=== PATIENT | female | born 2000 | race Caucasian/White ===

== ENCOUNTER 2020-08-10 00:02 | Emergency (ER) | payer OTHER, SELFPAY ==
--- NOTE | ~2020-08-10 | CT_ITS ---
EXAMINATION: CT brain wo con INDICATION: Headache COMPARISON: None TECHNIQUE: Standard unenhanced head CT. The dose-length product (DLP) was 605.33 mGy-cm. The mA was a djusted according to patient size. Iterative reconstruction technique was employed. FINDINGS: There is no intracranial hemorrhage, acute infarction, or abnormal mass lesion. The ventric les are normal. There is no abnormal mass effect or midline shift. The scott-white matter differentiat ion is normal. The basal cisterns are patent. The orbits are normal. The paranasal sinuses, mastoids and calvarium are normal. IMPRESSION: 1. No acute intracranial abnormality. Reviewed, dictated and finalized at location A. 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
[2020-08-10 00:04] VITALS: BP 124/79; PULSE 79; RESP 15; TEMP 36.6; O2SAT 100
--- NOTE | 2020-08-10 00:15 | PC.NURSE ---
To room with steady brisk gait, normal gait, normal posture, changing positions without difficulty.
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
[2020-08-10] MEDS: METOCLOPRAMIDE HCL INJ 10 MG/2 ML VIAL IV PUSH (01:22)
[2020-08-10] MEDS: SODIUM CHLORIDE 0.9% IV 1,000 ML 999 ML IV CONT (01:22)
[2020-08-10] MEDS: diphenhydrAMINE HCl INJ 50 MG/ML VIAL 25 MG IV PUSH (01:22)
[2020-08-10] MEDS: MAGNESIUM SULF 2 GM/WATER 50ML 2 GM/50 ML BAG IVPB (01:35)
[2020-08-10 02:01] LABS: Basophils Absolute Auto 0.1 K/mm3 (0.0-0.1); Eosinophils Absolute Auto 0.1 K/mm3 (0-0.3); Eosinophils Percent Auto 1.4 % (0-4.4); Hematocrit 37.2 % (37.0-47.0); Hemoglobin 12.5 g/dL (12.0-15.0); Immature Granulocyte Absolute 0.01 K/mm3 (0.00-0.031); Immature Granulocyte Percent A 0.1 % (0-0.5); Lymphocytes Absolute Auto 3.12 K/mm3 (0.9-3.2); Lymphocytes Percent Auto 42.4 % (18.3-44.2); Mean Corpuscular HGB Conc 33.6 g/dl (32-36); Mean Corpuscular Hemoglobin 28.9 pg (26-34); Mean Corpuscular Volume 86.1 fl (80-100); Mean Platelet Volume 10.4 fl (7.4-10.4); Monocytes Absolute Auto 0.8 K/mm3 (0.1-0.6); Monocytes Percent Auto 10.2 % (2.6-8.5); Neutrophils Absolute Auto 3.3 K/mm3 (1.3-6.7); Neutrophils Percent Auto 44.9 % (45.5-73.1); Platelet Count Result 229 k/mm3 (150-375); Red Blood Count 4.32 M/mm3 (4.2-5.4); Red Cell Distribution Width 13.9 % (11.5-14.5); White Blood Count 7.4 K/mm3 (4.5-10.0)
[2020-08-10 02:14] LABS: Anion Gap 8 mmol/L (8-16); Blood Urea Nitrogen 12 mg/dL (7-17); Carbon Dioxide 26 mmol/L (22-30); Chloride 104 mmol/L (98-107); Estimated CRCL calculation 106 ml/min; Estimated Glomerular Filt Rate > 60; Glucose 91 mg/dL (65-105); Potassium 3.3 mmol/L (3.4-5.0); Sodium 138 mmol/L (137-145)
[2020-08-10 02:31] VITALS: BP 96/56; PULSE 82; RESP 16; TEMP 36.6; O2SAT 100
== END 2020-08-10 02:31 | disposition home or self-care (01) ==
PROVIDERS: Emergency Provider Emergency Medicine
DX: R51.9 Headache, unspecified (principal)
CPT/HCPCS: 36415; 70450; 80048; 85025; 96365; 96375; 99284; J0131; J1200; J2765; J3475; J7030

== ENCOUNTER 2021-11-09 17:53 | Emergency (ER) | payer OTHER, SELFPAY ==
[2021-11-09 18:02] VITALS: BP 122/65; PULSE 66; RESP 20; TEMP 37.5; O2SAT 100
--- NOTE | 2021-11-09 18:37 | ED.SKABFB ---
HPI - Skin/Abscess/Foreign Bdy General Chief complaint: Skin/Abscess/Foreign Body Stated complaint: Head Pain Time Seen by Provider: 11/09/21 18:23 Source: patient and RN notes reviewed Mode of arrival: ambulatory Limitations: no limitations History of Present Illness HPI narrative: Patient presents today complaining of a bump behind her right ear that is occasionally itchy and painful. Patient has been bothered by this bump intermittently over the past year and wanted to come in for evaluation. It is most prominent after she has been crying or when she washes her hair. She became alarmed after she Google searched and it said she may have a blood clot on the surface of her scalp. Denies real pain, but states it is uncomfortable. She has not tried any [id number]-[id number] treatment prior to arrival. Related Data Home Medications Medication Instructions Recorded Confirmed No Home Medications 11/09/21 11/09/21 Allergies Allergy/AdvReac Type Severity Reaction Status Date / Time No Known Allergies Allergy Verified 11/09/21 18:06 Review of Systems Review of Systems: CONSTITUTIONAL: Denies body aches, fever, chills, or sweats. EYES: Denies visual changes, redness, or discharge. ENT: Denies rhinorrhea, congestion, sore throat, or otalgia. CARDIOVASCULAR: Denies chest pain, palpitations, or edema. RESPIRATORY: Denies cough or dyspnea. GASTROINTESTINAL: Denies abdominal pain, nausea, vomiting, or diarrhea. GENITOURINARY: Denies dysuria or hematuria. SKIN: Denies rash, itching, or wounds.+ Bump to scalp MUSCULOSKELETAL: Denies back pain, joint pain, or myalgia. NEUROLOGIC: Denies headache, numbness, tingling, or weakness. PSYCH: Denies depression or anxiety. [facility] Past Medical History Medical History No pertinent past medical history Surgical History Surgical History No pertinent past surgical history Social History Social History Smoking status: Current every day smoker Tobacco type: e-cigarettes/vaping Alcohol intake: never Substance use: current Substance use type: marijuana Gender identity (if verbalized by the patient): Female Comments At time of signature, I have reviewed and agree with nursing past medical, surgical, social and family history unless otherwise noted. Please see nursing chart for further information. There is no relevant family history pertinent to the presenting complaint Exam Narrative: GENERAL: Well-appearing, well-nourished, and in no acute distress. HEAD: Normocephalic, atraumatic. EYES: EOMI. No redness or drainage. Conjunctivae normal. ENT: Mucous membranes pink and moist. Right postauricular tenderness over 1 lymph node. No erythema or additional edema noted. NECK: Normal AROM. Supple. No lymphadenopathy. CHEST: No respiratory distress. Clear to auscultation. HEART: Regular rate and rhythm. No murmur appreciated. Normal peripheral pulses. EXTREMITIES: Normal range of motion. No edema. SKIN: Warm, dry, no rash. Capillary refill normal. Normal skin turgor. NEURO: No focal deficits. Alert and oriented x3. Gait steady. PSYCH: Normal affect. No signs of depression or anxiety. Course Course Level of Care: Express Care Visit Vital Signs Vital signs: Vital Signs Temperature 99.5 F 11/09/21 18:02 Pulse Rate 66 11/09/21 18:02 Respiratory Rate 20 11/09/21 18:02 Blood Pressure 122/65 11/09/21 18:02 Pulse Oximetry 100 11/09/21 18:02 Temperature 99.5 F 11/09/21 18:02 Pulse Rate 66 11/09/21 18:02 Respiratory Rate 20 11/09/21 18:02 Blood Pressure 122/65 11/09/21 18:02 Pulse Oximetry 100 11/09/21 18:02 Reviewed. Pt has been instructed to follow up with her PCP regarding her elevated blood pressure today. MDM - Skin/Abscess/Foreign Bdy Differential Diagn
== END 2021-11-09 18:47 | disposition home or self-care (01) ==
PROVIDERS: Emergency Provider Nurse Practitioner
DX: I88.9 Nonspecific lymphadenitis, unspecified (principal); F17.290 Nicotine dependence, other tobacco product, uncomplicated; F12.90 Cannabis use, unspecified, uncomplicated
CPT/HCPCS: 99211; G0463

== ENCOUNTER 2024-10-04 10:32 | Emergency (ER) | payer SELFPAY ==
--- NOTE | 2024-10-04 10:41 | ED.URI ---
HPI - URI/Sore Throat General Chief Complaint: Upper Respiratory Infection Stated Complaint: Cough/Sinus Time Seen by Provider: 10/04/24 10:59 Source: patient and RN notes reviewed Mode of arrival: ambulatory Limitations: no limitations History of Present Illness HPI Narrative: 24-year-old female presents with concern of for cough, sinus congestion, body for several days. Reports she has taken Tylenol without relief. Reports vomiting related to coughing MD elicited complaint: cough and nasal congestion Related Data Allergies Allergy/AdvReac Type Severity Reaction Status Date / Time No Known Allergies Allergy Verified 10/04/24 10:38 Review of Systems Review of Systems: CONSTITUTIONAL: Reports malaise, chills EYES: Denies visual changes, redness, or discharge. ENT: Reports rhinorrhea, congestion, and sore throat. CARDIOVASCULAR: Denies chest pain, palpitations, or edema. RESPIRATORY: Reports cough. Denies dyspnea. GASTROINTESTINAL: Denies abdominal pain, nausea, vomiting, diarrhea SKIN: Denies rash or itching. MUSCULOSKELETAL: Reports myalgia. NEUROLOGIC: Denies headache. All systems reviewed & are unremarkable except as noted in HPI and below PMFSH Past Medical History Medical History No pertinent past medical history Surgical History Surgical History No pertinent past surgical history Social History Social History Smoking status: Current every day smoker Tobacco type: e-cigarettes/vaping Alcohol intake: never Substance use: current Substance use type: marijuana Gender identity (if verbalized by the patient): Female Comments At time of signature, agree with nursing past medical, surgical, social and family history. There is no relevant family history pertinent to the presenting complaint Exam Narrative: GENERAL: Well-appearing, well-nourished, and in no acute distress. HEAD: Normocephalic EYES: PERRLA, conjunctivae clear ENT: Nares clear. Mucous membranes moist. TM pearly scott with dull light reflex bilaterally; no tragal tenderness. Oropharynx not erythematous without lesions. Tonsils not enlarged and without exudate, no drooling, no hoarseness, no trismus, uvula midline. NECK: Supple. No lymphadenopathy CHEST: Clear to auscultation, breath sounds equal. No wheezing, rhonchi, rales, or stridor. No respiratory distress, speaks in full sentences. HEART: Regular rate and rhythm. No murmur heard. SKIN: Warm, dry, no rash. NEURO: Alert and oriented x3. PSYCH: Normal mood and affect Course Course Emergency Course: Patient is aware of diagnosis, understands and agrees to treatment plan. Anticipatory guidance given. Patient agrees to follow-up as directed and is aware of reasons to seek care at the emergency department. Portions of this record may have been created with voice recognition software Level of Care: Express Care Visit Vital Signs Vital signs: Reviewed. MDM - URI/Sore Throat MDM Narrative Medical decision making narrative: Differential diagnosis considered: Perez virus, strep pharyngitis, allergic rhinitis, upper respiratory tract infection, sinusitis, rhinosinusitis, nasopharyngitis. viral pharyngitis, otitis media, otitis externa, pneumonia, bronchitis, viral cough syndrome, viral syndrome, and influenza. Exam findings show no acute concerns or changes; patient is non-toxic appearing and is in no distress. Patient is appropriate for outpatient treatment and follow-up. Lab Data Attestation: I reviewed the patient's lab results. Critical Care Time Critical Care Time Critical Care Time: No Discharge Plan Discharge Clinical Impression: Upper respiratory infection Patient Disposition: Home, Self-Care Condition: Stable Instructions: Upper Respiratory Infection (ED) Additional Instructions: Your rapid COVID and flu tests are negative Your rapid strep swab was negative today at [facility]. A throat culture will be sent to the laboratory for further testing. If the test is positive, you will receive a phone call within 48 hours and an appropriate antibiotic will be initiated at that time. Your symptoms are likely due to a viral illness, which is not treated with antibiotics. Viral symptoms can be present for up to a few weeks. -Alternate Tylenol and Motrin per package directions for fever or pain. -Antihistamine medication such as Benadryl at night and Zyrtec during the day can help improve symptoms. -Eat and drink things that are easy to swallow, like tea or soup, or popsicles to suck on. -Oral rinses such as: Salt water gargles and/or may use topical anesthetic (eg. Chloraseptic spray) or lozenges to relieve dryness or throat pain). -Frequent hand washing or hand hadoop consultant is one of the best ways to prevent spread of infection. -Follow up with primary care provider in 2-3 days if condition is not improving; or seek ER visit if you have trouble breathing, cannot drink enough fluids, have muffled voice, difficulty opening your mouth, or severe swelling. Patient Language: Maori Prescriptions: New promethazine-DM 6.25-15 mg/5 mL syrup 5 ml PO Q4-6H PRN (Reason: cough) Qty: 120 0RF Follow-up/Referrals: PHYSICIAN,FAMILY LITERACY COORDINATOR [Primary Care Provider] - Time of Disposition: 11:06
[2024-10-04 10:49] VITALS: BP 128/85; PULSE 85; RESP 16; TEMP 37.7; O2SAT 99
[2024-10-04 11:04] LABS: EDCOVIDSCREEN Negative (Negative); EDINFLUASCREEN Negative (Negative); EDINFLUBSCREEN Negative (Negative); EDSTREPNEGPOS1 Negative (Negative)
== END 2024-10-04 11:10 | disposition home or self-care (01) ==
PROVIDERS: Emergency Provider Nurse Practitioner
DX: J06.9 Acute upper respiratory infection, unspecified (principal); Z20.822 Contact with and (suspected) exposure to COVID-19; F17.290 Nicotine dependence, other tobacco product, uncomplicated; F12.90 Cannabis use, unspecified, uncomplicated
CPT/HCPCS: 87081; 87426; 87804; 87880; 99213; G0463

== ENCOUNTER 2025-08-05 02:26 | Emergency (ER) | payer SELFPAY ==
--- OUTSIDE RECORDS SUMMARY | 2025-08-05 02:30 | XMS_ITS | Clinical Summary ---
Author Organization 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 [employer],non-owned Affiliates and Associated Physician Practices is amultiple site organization consisting of ambulatory clinics and hospital sitesin [place], [place], [place] and [place]. This disclosure is being madepursuant to the Care Everywhere program and may not contain all information available regarding this patient. Last updated 18.[facility] [employer] Allergies No known active allergies Medications * Be aware that medications may not be up to date on this document. Alwaysverify current medications with the patient. 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 Gender Identity Not on file Sexual Orientation Not on file Last Filed Vital Signs Vital Sign Reading Time Taken Comments Blood Pressure 140/76 03/22/2017 4:03 AM CDT Pulse 87 03/22/2017 4:03 AM CDT Temperature 36.8 C (98.3 F) 03/22/2017 4:03 AM CDT Respiratory Rate 18 03/22/2017 4:03 AM CDT Oxygen Saturation 99% 03/22/2017 4:03 AM CDT Inhaled Oxygen Concentration - - Weight 49.9 kg (110 lb) 03/21/2017 11:30 PM CDT Height 157.5 cm (5' 2) 03/21/2017 11:30 PM CDT Body Mass Index 20.12 03/21/2017 11:30 PM CDT Plan of Treatment Health Maintenance Due Date Last Done Comments HIV SCREENING 2013 HEPATITIS C SCREENING 02/28/2016 DTAP/TDAP/TD VACCINES (1 - Tdap) 2017 HEPATITIS B VACCINE (1 of 3 - 19+ 3-dose series) 2017 DEPRESSION SCREENING 08/19/2024 HPV VACCINE (1 - 3-dose SCDM series) 2025 COVID-19 VACCINE (1 - 2024-2 6 season) 2025 INFLUENZA VACCINE (#1) 2025 ZOSTER VACCINE (1 of 2) 2048 HIB VACCINE Aged Out No longer eligi ble based on patient's age to complete this topic MENINGOCOCCAL (Group B) VACC INE SHARED DECISION-MAKING Aged Out No longer eligibl e based on patient's age to complete this topic MENINGOCOCCAL GROUPS A/C/Y/W VACCINE Aged Out No longer eligible b ased on patient's age to complete this topic PNEUMOCOCCAL VACCINE Aged Out No long er eligible based on patient's age to complete this topic
--- OUTSIDE RECORDS SUMMARY | 2025-08-05 02:30 | XMS_ITS | Data Portability ---
Author Organization [facility] [place] Address [address] [place] [address] [place] [address] Assessment Encounter Date Assessment Date Assessment LastModified by Organization Details LastModified Time 04/18/2022 04/18/2022 Annual gynecological exam performed. Patient will come back in a year unless there are new symptoms. [email or web address] Not available 04/18/2022 10:58:01 Plan of Treatment Reminders Order Date Submit Date Provider Last Modified By Organization Details Last Modified Time Details Appointments None recorded. Lab None recorded. Referral None recorded. Procedures None recorded. Surgeries None recorded. Imaging US, pelvis [id number], [address], [address], [place], [address], 19:29:25 US, transvagina l [id number], [address], [address], [place], [address], 19:29:25 Medication Orders doxycycline monohydrate 100 mg capsule 2021 022 [facility], [address] [facility], [place], [address], 11:25:53 Patient TargetsNo targets recorded. Patient Instructions Encounter Date Encounter Id Patient Instructions Last Modified By Organization Details Last Modified Time 01/26/2020 [id number] learning about control Not available 01/26/2020 10:59:10 surgical trays* layran Not available 07/07/2020 12:14:48 pt tolerated well, will f/u one month for IUD check Not available 01/26/2020 10:59:30 02/23/2020 [id number] pt happy with IUD, f/u wwe or as needed Not available 02/23/2020 14:52:16 Reason for Referral None Reported. Results Created Date Observation Date Name Description Value Unit Range Abnormal Flag Note LastModifiedBy Organization Detail LastModifiedTime 01/26/20 20 01/28/2020 CT + NG DNA, PCR, unspe cifie d speci men trichomonas vaginalis, aptima (panther) NOT DETECT ED normal DNA testi ng perfo rmed by Trans cript ion Media manish Ampli ficat ion (TMA) These resul ts shoul d be inter prete d in light of all clini dionicio and labor atory findi ngs. This assay is highl y accur ate, but rare false posit almas and negat almas resul ts may occur . Posit almas resul ts in low preva lence popul ation s may requi re re-ev aluat ion. A negat almas resul t does not precl ude a possi ble infec tion due to a speci men inade quacy or sampl ing error . Test perfo rmed by [facility], d/b/a [facility], [address], [place] [address] , Conner Obrien ra, DO, Labor atory Dire tor. Not Available [facility] ([facility]) [address], [place], [address], 01/28/2020 05:06:14 01/26/20 20 01/28/2020 CT + NG DNA, PCR, unspe cifie d speci men neisseria gonorrhoeae, aptima NOT DETECT ED normal DNA testi ng perfo rmed by Trans cript ion Media manish Ampli ficat ion (TMA) These resul ts shoul d be inter prete d in light of all clini dionicio and labor atory findi ngs. This assay is highl y accur ate, but rare false posit almas and negat almas resul ts may occur . Posit almas resul ts in low preva lence popul ation s may requi re re-ev aluat ion. A negat almas resul t does not precl ude a possi ble infec tion due to a speci men inade quacy or sampl ing error . Test perfo rmed by [facility] [employer], [employer], d/b/a [facility], [address], [place] [address] , Conner Obrien ra, DO, Labor atory Direc tor. Not Available [facility] ([facility]) [facility], [place], [address], 01/28/2020 05:06:14 01/26/2001/28/2020 CT + NG DNA, PCR, unspe cifie d speci men chlamydia trachomatis, aptima NOT DETECT ED normal DNA testi ng perfo rmed by Trans cript ion Media manish Ampli ficat ion (TMA) These resul ts shoul d be inter prete d in light of all clini dionicio and labor atory findi ngs. This assay is highl y accur ate, but rare false posit almas and negat almas resul ts may occur . Posit almas resul ts in low preva lence popul ation s may requi re re-ev aluat ion. A negat almas resul t does not precl ude a possi ble infec tion due to a speci men inade quacy or sampl ing error . Test perfo rmed by [employer] [facility] [employer], [employer], d/b/a Madi rou[facility], [address], [place] [address] , Conner Obrien ra, DO, Labor atory Direc tor. Not Available [facility] ([facility]) [address], [place], [address], 01/28/2020 05:06:14 01/26/2001/26/2020 pregn harley test, urine HCG negati ve Not Available [place] [address], [place], [address], 01/26/2020 10:54:17 04/18/20 22 04/18/2022 IMAGE GUIDE D PAP, REFLE X HPV IF ASCUS ONLY image guided Pap, reflex HPV ASCUS only SEE RESULT S BELOW CASE REPOR T: Cytol ogy Gynec ologi dionicio Repor t Case: [id number] Autho anadomingogoyo carl Provi manuel: Macy Dye, SATURNINO Colle cted: 04/18 1022 Order ing Locat ion: [place] [facility] Recei riley: 04/19 0756 First Scree n: Gato villafuerte, Gulshan tolentino, CT Rescr een: Daphne Gordon Speci men: Scree rudy Pap - Image d, Cervi x STATE MENT OF ADEQU ACY: Satis facto ry for evalu ation Trans forma tion zone compo nent prese nt FINAL DIAGN OSIS: Negat almas for Intra epith elial Lesandrea nance or David tavera (NIL) . Elect ike kaye shae d by Daphne Gordon on 022 at 1:13 PM ----- ----- ----- ----- ----- ----- ----- ----- ----- ----- ----- ----- ----- ----- ----- ----- ----- ---- COMME NT: Note: This speci men was revie wed by a Cytot echno logis t and/o r Patho logis t (as indic ated in this repor t) after evalu ation using the Thinp rep Imagi ng Syste m. CLINI DIONICIO INFOR MATIO N: Menst rual Statu s: LMP (if appli cable ): Clini dionicio Histo ry/Pr eviou s Pap: Type of Neopl kayla (if appli cable ): Signi fican t Clini dionicio Findi ngs: Other Histo ry: Hormo gerda (if appli cable ): PAP EDUCA DASIA L NOTE: The Pap Test is a scree rudy test with an inher ent false negat almas rate. Liqui d-bas ed sampl ing may decre ase, but will not elimi kyra, false negat almas resul ts. A negat almas resul t does not precl ude the prese nce and/o r devel opmen t of disea se, since the prese nce of abnor mal cells in the sampl e depen ds on the locat ion of the lesio n and sampl ing techn ique. Danita nued regul ar scree rudy is the best metho d of cance r preve ntion . If repor manish cytol ogic findi ng do not corre late with physi dionicio and/o r histo rical findi ngs, furth er inves tigat ion is recom roosevelt d, as clini abiodun warra nted. Not Available [facility] [address] [place] [address], [address], 04/26/2022 14:15:06 04/18/20 22 04/18/2022 TRICH OMONA S VAGIN CHAD (RRNA ) trichomonas vaginalis ribosomal RNA (rrna) Negati ve negati ve Not Available [facility] [address] [place] [address], [address], 04/26/2022 14:15:07 04/18/20 22 04/18/2022 CT/GC (BRENDAN) , THINP REP VIAL chlamydia trachomatis, PCR Negati ve negati ve Not Available [facility] [address] [place], [address], 04/26/2022 14:15:07 04/18/20 22 04/18/2022 CT/GC (BRENDAN) , THINP REP VIAL neisseria gonorrhoeae, PCR Negati ve negati ve Not Available [facility] [address] [place] [address], [id number], 04/26/2022 14:15:07 04/26/20 22 04/26/2022 US, pelvi s No observ ation record ed. [email or web address] [facility] [address], [place], [address], 04/26/2022 13:00:02 04/26/20 22 04/26/2022 US, trans vagin al No observ ation record ed. [email or web address] [place] [address], [place], [address], 04/26/2022 13:00:11 04/26/20 22 04/26/2022 US, pelvi s No observ ation record ed. alvino De Dios [address] [place] [address], [place], [address], 05/01/2022 14:05:35 Result Notes None recorded. Procedures Surgical History Date Name Laterality Status Provider Name and Address Organization Details Recorded Time 0 IUD Insertion completed Meredith Aranda [facility] 01/26/2020 10:53:45 0 [facility] 01/26/2020 10:52:59 6 Date of Last Pap Smear completed Carmelina Gutierrez [facility] 04/18/2022 10:58:47 Imaging Results None recorded. Procedure Notes None recorded. Medical Equipment None Reported. Allergies No known drug allergies Medications Name Sig Start Date Stop Date Status Note LastModified by Organization Details LastModified Time ibuprofen 800 mg tablet TAKE 1 TABLET BY MOUTH TWICE DAILY FOR 10 DAYS active Not Available Not Available No t Available Loestrin Fe /20 (28-Day) 1 mg-20 mcg (21)/75 mg (7) tablet Take 1 tablet every day by oral route. 01/25 completed Not Available Not Available Not Available doxycycli ne monohydra te 100 mg capsule Take 1 capsule twice a day by oral route for 7 days. 2021 active Not Available Not Available Not Avai lable Ortho-Cyc reji (28) 0.25 mg-35 mcg tablet take 1 tablet by oral route every day 09/11 completed Prescrib ed Elsewher e: No Locat ion: Norah nicholson [facility] odify By: steffanie Ruckerte r DateTime : 07/23/20 16 10:30:00 AM Not Available Not Available Not Available Nexplanon 01/25 completed Not Available Not Available Not Available LAUNCH MANAGER-PNV-DH A 28 mg iron-1 mg-200 mg capsule take 1 capsule by oral route every day 2018 active Prescrib ed Elsewher e: No Locat ion: [facility] odify By: eli moore DateTime : 11/14/19 19 10:15:00 AM Not Available Not Available Not Available 19 29 mg iron-1 mg chewable tablet chew 1 tablet by oral route every day 2018 active Prescrib ed Elsewher e: No Locat ion: [facility] odify By: aldo Ruckerte r DateTime : 10/16/19 19 02:15:00 PM Not Available Not Available Not Available Kyleena 17.5 mcg/24 hr (up to 5 years) 19.5 mg intrauter ine device Take by intraute rine route. 2019 active Kyleena inserted 01/26/2020 Not Available Not Available Not Available Vitals Date Recorded Body height Body mass index (BMI) Body weight Systolic And Diastolic Provider Name and Address Organization Details Last Updated DateTime 01/26/2020 1920.24 cm 0.1 kg/m2 25457.64 g 112/74 mm[Hg] Meredith Aranda [facility] 01/26/2020 10:32:00 Date Recorded Body height Body mass index (BMI) Body weight Systolic And Diastolic Provider Name and Address Organization Details Last Updated DateTime 02/23/2020 1920.24 cm 0.1 kg/m2 77872.68 g 119/79 mm[Hg] Meredith Aranda [facility] 02/23/2020 14:46:38 Date Recorded Body height Body mass index (BMI) Body weight Systolic And Diastolic Provider Name and Address Organization Details Last Updated DateTime 04/18/2022 160.02 cm 18.6 kg/m2 89778.92 g 117/73 mm[Hg] Carmelina Gutierrez [facility] 04/18/2022 10:58:32 Date Recorded Body height Body mass index (BMI) Body weight Systolic And Diastolic Provider Name and Address Organization Details Last Updated DateTime 05/01/2022 160.02 cm 18.6 kg/m2 21736.92 g 117/67 mm[Hg] Carmelina Gutierrez [facility] 05/01/2022 11:14:11 Social History Question Answer Notes LastModified by Organizat ion Details LastModified Time Tobacco Smoking Status Former Smoker Meredith lee, [facility] 02/23/2020 14:47:14 Are You Blind Or Do You Have Difficulty Seeing? No Information not available 04/18/2022 Are You Deaf Or Do You Have Serious Difficulty Hearing? No Information not available 04/18/2022 What Type Of Diet Are You Following? REGULAR Information not available 04/18/2022 What Was The Date Of Your Most Recent Tobacco Screening? 02/23/2020 [email or web address] Information not available 02/23/2020 How Much Tobacco Do You Smoke? No [email or web address] Information not available 02/23/2020 Do You Have Difficulty Walking Or Climbing Stairs? No Information not available 04/18/2022 Sex: Unknown Functional Status Question Answer Note LastModified by Organizat ion Details LastModified Time What is your level of alcohol consumption? Occasional [email or web address] Information not available 02/23/2020 Are you able to walk independently without assistance or assistive devices? [email or web address] Information not available 04/18/2022 Are you able to care for yourself independently? Yes Information not available 04/18/2022 Do you have difficulty dressing, bathing, grooming, or toileting? No Information not available 04/18/2022 What is your exercise level? Occasional [email or web address] Information not available 02/23/2020 Mental Status None recorded. Family History Relationship Description Onset Age of this Age Resolved Age Notes LastModified by Organization Details LastModified Time Paternal Grandfather Diabetes mellitus [email or web address] Not available 2019 11:25:24 Maternal Grandmother Hypertensive disorder [email or web address] Not available 2019 11:25:42 Notes:Maternal grandmother: Hypertension Paternal grandfather: Diabetes mellitus Medical History Condition Response Allergies (Food, seasonal, environmental ) N Other N Drug/Latex Allergies/Reactions N Breast Cancer N Blood Transfusion N Lung Disease N Dermatologic Disorders N Defects or Inherited Disease N Breast Problem N Gestational Diabetes N Hematologic disorders N Anesthesia Complications N History of STI N Deep Vein Thrombosis N Polycystic ovary syndrome N Anxiety Disorder N Autoimmune disease N Arthritis N Polyps N Infertility N History of abnormal pap N Acid Reflux (GERD) N Cancer N Varicosities N Stroke N Neurologic/Epilepsy N Endometriosis N High Cholesterol N Headaches N Fibromyalgia N Kidney Disease N Heart Problems N Thyroid Problems N Kidney or Bladder Problems N GI Problems N Eating Disorder N Anemia N Art (IVF or FET) N Psychiatric Illness N Ovarian Cancer N Diabetes N Pulmonary (TB, Asthma) N Hepatitis/Liver Disease N No Past Medical History N Eczema N Urinary Tract Infection N Abuse/Domestic Violence N Asthma N Trauma/Violence N Depression/ depression N Heart Disease N Pre-Eclampsia N Hypertension N Osteoporosis N Thrombophilias N Gynecological History Statement/Question Response Flow Light Date of LMP 04/15/2022 Sexually Active? Y Menses Monthly Y STIs/STDs N HPV Vaccine Y Date of Last Pap Smear 07/23/2016 Sexual Problems? Y Duration of Flow (days) 2 Current Control Method IUD LMP Approximate Obstetrics History GPAL:G 2 P 1 0 1 1 Type Value Full Term 1 Spontaneous 1 Living 1 Total 2 Past Encounters Encounter ID Performer Location Encounter Start Date Encounter Closed Date Diagnosis/Indication Diagnosis SNOMED-CT Code Diagnosis ICD10 Code Diagnosis IMO Codes Diagnosis Note [id number] Octavia Greer CNM [place] [address] [address] 12/23/2019 09:24:27 12/23/2019 10:07:09 Contraception care management 297668845 Z30.9 Patient is a 19yo white female here today to discuss nexplanon issues. Device placed 05/27/2019. She feels she has noticed a significan t decline in her mood since placement of this device. Feels more sad and down; no suicidal ideations or thoughts of self-harm or harm to others; but more tearful. Does not feel it has gotten any better all this time. She reports no Hx of anxiety/de pression or other mental illness. She is interested in removal of nexplanon & possible IUD. 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 Opts for Kyleena. Discussed all control options and pt would like mirena IUD. I have discussed in detail all risks and benefits including risk of infection and perforatio n. She understand s she will need to contact office with next menses or may abstain, complete serum HCG day before placement, if neg can have IUD placed next day. Aware of need to verify with insurance device coverage. Literature given. All questions answered to patient satisfacti on. Has her 8mos old daughter with her. She will schedule Nexplanon removal/Ky silvio IUD insertion for next week. Literature given on this IUD. Time spent in visit is a total of 27 mins with at least 50% of visit consisting of counseling and review of plan of care. [id number] [address],[place] [address] 01/26/2020 10:03:00 01/26/2020 17:02:25 Contraception care management 033914927 Z30.9 Uses IUD (intrauterine device) contraception 061195508 Z97.5 [id number] Morenita Elizabeth CNM [place] [address],[place] [address] 02/23/2020 14:31:59 02/23/2020 15:08:23 Uses IUD (intrauterine device) contraception 591308847 Z97.5 [id number] ADRIAN Wild [facility] [address],[place] [address] 04/18/2022 10:43:25 04/18/2022 11:19:14 Gynecologic examination 58653935 Z01.419 Take Calcium with Vitamin D 1200mg daily if not receiving in daily diet. It is strongly advised to have an annual flu shot and up can obtain at most pharmacies . If you have not had a TDap shot in the last 10 years you should obtain one as well. Discussed with patient & provided with informatio n regarding Gardisil vaccine to prevent the 4 strains for HPV that cause cervical cancer if under age 26. Encourage safe sexual practices, to use condoms and limit partners if not already in a monogamous relationsh ip. Do monthly self breast exams. Have mammogram yearly or every other year depending on family history. BRCA testing is now available for patients with strong genetic history of female cancer. If interested contact the office. Engage in daily exercise of low impact aerobic exercise 45-60 minutes 4-5 times weekly. Avoid tobacco and illicit drugs as well as using moderation with alcohol intake less than 1-2 8 oz beverages daily. This lifestyle behavior pattern will lead to less health conditions and longer life span. If BMI greater than 25 weight watchers or dietary consult advised. Patient received above instructio ns, and questions have been answered. If you have any questions please call or respond to this email. Patient was made aware of the patient portal and may obtain a paper copy of today's plan if desired. [facility], inserted 01/26/2020, happy with this methodShe is having pain with intercours e for the past few years. Pain is with insertion and deep penetratio n.IUD strings NOT seen on speculum exam todayPelvi c u/s orderedWe discussed pelvic floor physical therapy for dyspareuni a, she declines at this timeLast pap smear 2016 - normal per patientPap done todaySTI testing added to papGenetic testing, discussedR TC for pelvic u/s and f[facility] [id number] Z30.9 Venereal d isease screening 524813561 Z11.3 Dyspareunia 13800227 N94 .10 [id number] Jann Garcia MD [place] [address] [address] 04/26/2022 12:21:36 04/26/2022 12:52:42 Dyspareunia 99007445 N94.10 [id number] ADRIAN Wild [place] [address] [address] 05/01/2022 10:59:44 05/01/2022 11:32:36 Contraception care management 185073718 Z30.9 Pain in pelvis 27916383 R10.2 We discussed pelvic u/s resultNorm ally placed IUD, normal appearing uterusMode rate amount of fluid in CDSStill having some pelvic pain with intercours e but improvingH as had recent (-) STI testingWe agreed to trial of doxy for pain with intercours e/moderate amount of free fluidShe would like to continue with Kyleena IUD for BCShe will consider pelvic floor physical therapy if pain continues after treatmentR x sentRTC in 1 year for WWE or sooner if needed Time spent in visit is a total of 15 mins with at least 50% of visit consisting of counseling and review of plan of care. Health Concerns Section Related Observation LastModified by Organization Detai ls LastModified Time None Recorded Concern Status LastModified by Organization Details LastModified Time None Recorded Advance Directives Directive None Recorded Payers Insurance Date Sequence Insurance Name Policy Number Policy Alvarez Covered Member ID Alvarez Member ID Guarantor Name 04/29/2022 1 [facility] (MEDICAID HMO) [id number] Marcela Wilverleobardo [id number] Notes Date Note Type Note Provider Name and Address Organization Details Recorded Time 0 text/html ROS as noted in the HPI here for nexplanon removal, and kyleena placement, see previous note. side effects risks reviewed, consent signed Morenita Elizabeth CNM [address], [place], [address], [facility] 01/26/2020 10:59:36 0 text/html ROS as noted in the HPI f/u mirena placement, having some cramping with this menstrual cycle, Morenita Elizabeth CNM [address], [place], [address], [facility] 02/23/2020 14:52:44 2 text/html Annual GYNReported by PatientGenitourinary symptomsFor menstrual cycle, patient reportsnormal menses. For urinary symptoms, patient reportsno hematuriaandno incontinence. For vulva, patient reportsno genital lesion. For vagina, patient reportsnormal vaginal discharge.Breast symptomsFor breast, patient reportsno breast pain,no breast lump, andno nipple discharge.ContraceptionFo r current contraception, patient reportsintrauterine device (iud).Endocrine symptomsFor sexual complaints, patient reportsno sexual complaints,no pain during intercourse, andnormal libido. For menopausal symptoms, patient reportsno menopausal symptomsandnormal vaginal lubrication.Psychological symptomsFor psychological symptoms, patient reportsno depression,no anxiety, andno pmdd.Preventative measuresFor preventive measures, patient reportsencourage self breast examination,encourage regular exercise,encourage no tobacco use, andencourage regular mammograms starting age 40. ADRIAN Wild [address], [place], [address], [facility] 04/18/2022 11:16:21 2 text/html 22yo Presents for pelvic u/s f/uKyleena strings [facility] pelvic pain with intercourseNo vaginal symptomsNormal bowel movementsNo urinary symptoms ADRIAN Wild [address], [place], [address], [facility] 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 Status 01/27/20 20 1 CLOSED Fetus Data First Name Last Name Admitted to NICU Weight (g) Sex Living Outcome Pediatric Complications Fetus ID Race Codes Race Delivery Type , Spontane ous [id number] Hemal Calculation Initial Hemal Date Initial Exam Date Initial Exam Provider Initial Ultrasound Date Last Menstrual Period Date Ultra Sound Weeks Gestation 0 Eighteen To Twenty Week Hemal Update Ultra Sound Date Fundal Height At Umbil Quickening Date Ultra Sound Latest Weeks Gestation Final Hemal Confirmed By Final Hemal Confirmed Date Final Hemal Date Ultra Sound Latest Days Gestation 0 0 Menstrual History Last Menstrual Date Menses Monthly On Bcp Conception Prior Menses Frequency Hcg Plus Date Menarche Onset Age Delivery Information Delivery Date Delivery Type Labor Anesthesia Weeks Gestation Incision Type Labor Labor Length Hrs Delivered By Post Complications Tubal Sterilization Discharge Date Comments 2017 miscarria ge Discharge Information Feeding Method Contraceptive Method Maternal HG B and HCT Levels Ob Episode Information Episode Created Date Number of Fetuses Patient Bloodtype Patient rh Status Prepregnancy Weight lbs Domestic Partner Domestic Partner Phone Father Name Top Precipitator 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 Helper Status 01/27/20 20 1 CLOSED Fetus Data First Name Last Name Admitted to NICU Weight (g) Sex Living Outcome Pediatric Complications Fetus ID Race Codes Race Delivery Type 3175.14 4 F Full Term 2161 Vaginal Delivery Hemal Calculation Initial Hemal Date Initial Exam Date Initial Exam Provider Initial Ultrasound Date Last Menstrual Period Date Ultra Sound Weeks Gestation 0 Eighteen To Twenty Week Hemal Update Ultra Sound Date Fundal Height At Umbil Quickening Date Ultra Sound Latest Weeks Gestation Final Hemal Confirmed By Final Hemal Confirmed Date Final Hemal Date Ultra Sound Latest Days Gestation 0 0 Menstrual History Last Menstrual Date Menses Monthly On Bcp Conception Prior Menses Frequency Hcg Plus Date Menarche Onset Age Delivery Information Delivery Date Delivery Type Labor Anesthesia Weeks Gestation Incision Type Labor Labor Length Hrs Delivered By Post Complications Tubal Sterilization Discharge Date Comments 9 40.1 Discharge Information Feeding Method Contraceptive Method Maternal HG B and HCT Levels
[2025-08-05 02:32] VITALS: BP 111/71; PULSE 85; RESP 18; TEMP 36.6; O2SAT 98
--- NOTE | 2025-08-05 02:43 | ED_ITS ---
HPI - Nausea/Vomiting/Diarrhea General Chief complaint: Nausea/Vomiting/Diarrhea Stated complaint: n/v Time Seen by Provider: 08/05/25 02:31 History of Present Illness HPI Narrative: 25-year-old otherwise healthy female presenting to the emergency department today with a foreign body sensation in her throat and mouth. She feels like there is a hair or something in her uvula causing her to gag. She states she has been having this feeling intermittent for last 2 days and then had some coughing fits. She states that it triggers her gag reflex really bad she had 1 episode of vomiting. Denies any other recent injuries or recent illnesses. No nausea, vomiting presently, foreign body sensation still in her mouth specifically around her uvula. Denies any recent injuries or sore throat sensations. Do not swallow anything memorable to make her feel like this. No systemic symptoms. Related Data Allergies Allergy/AdvReac Type Severity Reaction Status Date / Time No Known Allergies Allergy Verified 08/05/25 04:22 Review of Systems Review of Systems: As reviewed above in HPI All systems reviewed & are unremarkable except as noted in HPI and below PMFSH Past Medical History Medical History No pertinent past medical history Surgical History Surgical History No pertinent past surgical history Social History Social History Smoking status: Current every day smoker Tobacco type: e-cigarettes/vaping Alcohol intake: never Substance use: current Substance use type: marijuana Gender identity (if verbalized by the patient): Female Exam Narrative: GENERAL: Well-appearing HEAD: Normocephalic and atraumatic EYES: PERRLA ENT: Posterior oropharynx does have some redness and linear erythema with some mild cobblestoning. No tonsillar exudates or erythema. Uvula is midline without any obvious foreign body, no pooling secretions. No tenderness with palpation of the tongue or any other appreciable intraoral lesions. Neck is supple. NECK: Supple. CHEST: No respiratory distress ABDOMEN: Nondistended EXTREMITIES: Normal range of motion. Ambulatory SKIN: Warm, dry, no rash. NEURO: No appreciable deficits. Alert oriented x3 PSYCH: Normal mood Course Vital Signs Vital signs: Vital Signs Temperature 36.6 C 08/05/25 02:32 Pulse Rate 85 08/05/25 02:32 Respiratory Rate 18 08/05/25 02:32 Blood Pressure 111/71 08/05/25 02:32 Pulse Oximetry 98 08/05/25 02:32 Oxygen Delivery Room Air 08/05/25 02:32 Temperature 36.6 C 08/05/25 02:32 Pulse Rate 85 08/05/25 02:32 Respiratory Rate 18 08/05/25 02:32 Blood Pressure 111/71 08/05/25 02:32 Pulse Oximetry 98 08/05/25 02:32 Oxygen Delivery Room Air 08/05/25 02:32 MDM MDM Narrative Medical decision making narrative: 25-year-old otherwise healthy female presenting to the emergency department today with a foreign body sensation in her throat and mouth. She feels like there is a hair or something in her uvula causing her to gag. She states she has been having this feeling intermittent for last 2 days and then had some coughing fits. She states that it triggers her gag reflex really bad she had 1 episode of vomiting. Denies any other recent injuries or recent illnesses. No nausea, vomiting presently, foreign body sensation still in her mouth specifically around her uvula. Denies any recent injuries or sore throat sensations. Do not swallow anything memorable to make her feel like this. No systemic symptoms. Posterior oropharynx does have some redness and linear erythema with some mild cobblestoning. No tonsillar exudates or erythema. Uvula is midline without any obvious foreign body, no pooling secretions. No tenderness with palpation of the tongue or any other appreciable intraoral lesions. Neck is supple. Suspect some potential allergic component causing some throat irritation versus an upper respiratory infection verses foreign body sensation secondary to a abrasion from swallowing something sharp or jagged like a chip. Overall well-appearing and has no emergent concerning findings on examination. Normal vital signs. Will trial some salt water rinses and gargle and see if that helps if not we can try some magic mouthwash medications and see if that helps coat the area and that is causing her issues. Differential Diagnosis Differential Diagnosis: Suspect some potential allergic component causing some throat irritation versus an upper respiratory infection verses foreign body sensation secondary to a abrasion from swallowing something sharp or jagged like a chip. Discharge Plan Discharge Clinical Impression: Foreign body sensation, throat Patient Disposition: Home Condition: Stable Instructions: Antibiotic Form Additional Instructions: Clinical examination does not have any obvious foreign body material or injury but you do have some redness and erythema/streaking redness in the throat/top of the mouth that could be reactive to something you ate verses an allergy verses physical abrasion from something ingested versus possibility of an upper respiratory infection given the cough. Overall no emergencies were discovered today and you can safely go home. We have prescribed several medications to try for symptoms. Follow-up with your regular primary care provider if this is a worsening or persisting concerns. Return with any emergent issues. Patient Language: American Prescriptions: New Magic Mouthwash 50 mL suspension See Rx Instructions .ROUTE .COMPLEX Qty: 50 0RF Rx Instructions: Belladonna-Phenobarbital 16.2 mg-0.1037 mg-0.0194 mg/5 mL oral elixir 10 mL; Maalox Maximum Strength 400 mg-400 mg-40 mg/5 mL oral suspension 30 mL; lidocaine 2 % mucosal solution 10 mL; Per 50 mL cetirizine [Zyrtec] 10 mg tablet,chewable 10 mg PO DAILY PRN (Reason: allergy symptoms) Qty: 20 0RF ondansetron 4 mg tablet,disintegrating 4 mg PO Q8H PRN (Reason: nausea and vomiting) Qty: 10 0RF No Action promethazine-DM 6.25-15 mg/5 mL syrup 5 ml PO Q4-6H PRN (Reason: cough) Qty: 120 0RF Follow-up/Referrals: PHYSICIAN,SUPERVISOR INVENTORY MERCHANDISING [Primary Care Provider, Internal Medicine] Time of Disposition: 02:52
[2025-08-05] MEDS: LIDOCAINE 2% VISC SOLN 30 ML, ALUMINUM/MAGNESIUM/SIMETH SUSP 30 ML, diphenhydrAMINE HCl... PO (03:06)
== END 2025-08-05 03:07 | disposition home or self-care (01) ==
PROVIDERS: Emergency Provider Student in an Organized Health Care Education/Training Program
DX: R09.A2 Foreign body sensation, throat (principal); F17.290 Nicotine dependence, other tobacco product, uncomplicated
CPT/HCPCS: 99283; A9270

== ENCOUNTER 2025-08-05 04:10 | Emergency (ER) | payer SELFPAY ==
[2025-08-05] VITALS (8 sets, daily range): BP systolic 100–126; BP diastolic 61–94; PULSE 71–93; RESP 12–27; TEMP 37; O2SAT 98–100
--- NOTE | ~2025-08-05 | XR_ITS ---
Examination: XR chest 1V portable Clinical History: sob Comparison: None Technique: Portable AP Findings: Heart size normal. Lungs clear. No acute bony abnormality. IMPRESSION: 1. No acute cardiopulmonary findings given portable technique. Reviewed, dictated and finalized at location R. [employer]
--- NOTE | 2025-08-05 04:42 | ED_ITS ---
HPI - General Adult General Chief complaint: Unspecified Stated complaint: hand tingling and SOB Time Seen by Provider: 08/05/25 04:26 History of Present Illness HPI narrative: 25-year-old female presenting to the emergency department with a panic attack. Patient states she went home from her recent ER visit just last hour and was trying to get comfortable in bed but was not able to. She felt like she was hyperventilating and then she started having cramping sensations in her hands and feet and paresthesias in her hands and feet and they locked in place for a brief moment. Symptoms resolved prior to arrival back to the emergency department. She states she has no symptoms at this time besides her foreign body sensation from earlier. She did endorse chest tightness and shortness of breath during the episode. She states this happened previously and was told she had anxiety and was given techniques to try and cathi the symptoms but try anything but the symptoms still resolved on their own. Denies any new interval change. She does not take any additional medications or any other changes from her health history during prior HPI tonight. Related Data Allergies Allergy/AdvReac Type Severity Reaction Status Date / Time No Known Allergies Allergy Verified 08/05/25 04:22 Review of Systems Review of Systems: As reviewed above in HPI All systems reviewed & are unremarkable except as noted in HPI and below PMFSH Past Medical History Medical History No pertinent past medical history Surgical History Surgical History No pertinent past surgical history Social History Social History Smoking status: Current every day smoker Tobacco type: e-cigarettes/vaping Alcohol intake: never Substance use: current Substance use type: marijuana Gender identity (if verbalized by the patient): Female Exam Narrative: GENERAL: [Well-appearing, well-nourished, and in no acute distress.] HEAD: [Normocephalic, atraumatic.] EYES: [PERRLA and EOMI.] ENT: Nares clear, no rhinorrhea or epistaxis. Mucous membranes moist. NECK: Supple. CHEST: [Clear to auscultation. No respiratory distress.] HEART: [Regular rate and rhythm]. No murmur heard. [Normal peripheral pulses.] ABDOMEN: [Soft, nondistended], [nontender], [No rigidity or guarding] EXTREMITIES: Normal range of motion. [No edema.] SKIN: Warm, dry, no rash. NEURO: [No focal deficits]. Alert and oriented [x3.] PSYCH: [Normal mood and affect.] Course Vital Signs Vital signs: Vital Signs Pulse Rate 80 08/05/25 04:17 Respiratory Rate 13 08/05/25 04:17 Pulse Oximetry 98 08/05/25 04:17 Temperature 37.0 C 08/05/25 04:18 Pulse Rate 90 08/05/25 05:15 Respiratory Rate 21 H 08/05/25 05:15 Blood Pressure 101/61 08/05/25 05:01 Pulse Oximetry 100 08/05/25 05:15 Oxygen Delivery Room Air 08/05/25 04:18 MDM MDM Narrative Medical decision making narrative: 25-year-old female presenting to the emergency department with a panic attack. Patient states she went home from her recent ER visit just last hour and was trying to get comfortable in bed but was not able to. She felt like she was hyperventilating and then she started having cramping sensations in her hands and feet and paresthesias in her hands and feet and they locked in place for a brief moment. Symptoms resolved prior to arrival back to the emergency department. She states she has no symptoms at this time besides her foreign body sensation from earlier. She did endorse chest tightness and shortness of breath during the episode. She states this happened previously and was told she had anxiety and was given techniques to try and cathi the symptoms but try anything but the symptoms still resolved on their own. Denies any new interval change. She does not take any additional medications or any other changes from her health history during prior HPI tonight. Patient is mildly hyperventilating but calmed down at this time. Symptoms consistent with a panic attack and hyperventilation sequela and has stopped. Chest x-ray obtained as well as viral panel swabs given the complaint of shortness of breath and chest tightness. She is asymptomatic at this time and we discussed anxiety and its presentations as well as techniques for termination in the future. Viral panel negative, chest x-ray shows no solid consolidation or pneumothorax. Patient remained asymptomatic while here in the ED and safe for discharge. Differential Diagnosis Differential Diagnosis: Panic attack, URI, COVID, flu, RSV Lab Data MDM Lab Attestation statement: I personally reviewed the patient's lab results. Labs: Lab Results 08/05/25 Range/Units 04:31 Influenza A (RT-PCR) Negative (Negative) Influenza B (RT-PCR) Negative (Negative) RSV (RT-PCR) Negative (Negative) SARS-CoV-2 RNA (RT-PCR) Negative (Negative) Imaging Data Attestation: I personally reviewed and interpreted this imaging study as follows: My impression: No interval change compared to prior x-ray. No pneumothorax or pneumonia Radiologist's impression: ITS Impressions Chest X-Ray 08/05/25 06:05 IMPRESSION: 1. No acute cardiopulmonary findings given portable technique. Discharge Plan Discharge Clinical Impression: Panic attack Patient Disposition: Home Condition: Stable Instructions: Antibiotic Form, Panic Attack (ED) Additional Instructions: Viral panel swabs are negative, chest x-ray shows no focal pneumonia. Symptoms consistent with a panic attack. Continue current medications at home. Return with any emergent concerns otherwise follow-up with regular primary care provider. Patient Language: Chinese Prescriptions: No Action promethazine-DM 6.25-15 mg/5 mL syrup 5 ml PO Q4-6H PRN (Reason: cough) Qty: 120 0RF Magic Mouthwash 50 mL suspension See Rx Instructions .ROUTE .COMPLEX Qty: 50 0RF Rx Instructions: Belladonna-Phenobarbital 16.2 mg-0.1037 mg-0.0194 mg/5 mL oral elixir 10 mL; Maalox Maximum Strength 400 mg-400 mg-40 mg/5 mL oral suspension 30 mL; lidocaine 2 % mucosal solution 10 mL; Per 50 mL cetirizine [Zyrtec] 10 mg tablet,chewable 10 mg PO DAILY PRN (Reason: allergy symptoms) Qty: 20 0RF ondansetron 4 mg tablet,disintegrating 4 mg PO Q8H PRN (Reason: nausea and vomiting) Qty: 10 0RF Follow-up/Referrals: PHYSICIAN,[employer]LD[employer] CHIEF CREATIVE OFFICER [Primary Care Provider, Internal Medicine] Stand Alone Forms: Work/School Release IP Time of Disposition: 05:32
[2025-08-05 05:11] LABS: Influenza A QL RT-PCR Negative (Negative); Influenza B QL RT-PCR Negative (Negative); RSV RNA, RT-PCR Negative (Negative); SARS-CoV-2 RNA PCR Negative (Negative)
== END 2025-08-05 05:43 | disposition home or self-care (01) ==
PROVIDERS: Emergency Provider Student in an Organized Health Care Education/Training Program
DX: F41.0 Panic disorder [episodic paroxysmal anxiety] (principal); F17.290 Nicotine dependence, other tobacco product, uncomplicated
CPT/HCPCS: 71045; 87637; 99283